=== PATIENT | female | born 1980 | race Hispanic/Latino ===

== ENCOUNTER 2019-02-28 19:22 | Emergency (ER) | payer SELFPAY ==
[~2019-02-28] VITALS: Ht 154.9 cm; Wt 102.5 kg
--- OUTSIDE RECORDS SUMMARY | 2019-02-28 19:26 | XMS REPORT | Clinical Summary ---
Author Author [facility] Organization [facility] Address Unknown Phone Unavailable Care Team Providers Care Civil Service Clerk Name Role Phone Lizabeth Reyez MD PCP Allergies No Known Allergies Medications End Date Status Medication Sig Dispensed Refills Start Date Active multivitamin/iron/folic Take by 0 acid (CENTRUM WOMEN OR) mouth. Active Condoms - Male by 49 Each 3 MiscIndications: Use of Misc.(Non-Hardeep 8 condoms for contraception g; Combo Route) route as needed. Active Nonoxynol-9 (VAGINAL Insert 3 Can 3 CONTRACEPTIVE FOAM) 12.5 vaginally. 8 % FoamIndications: Use of condoms for contraception Active loratadine (CLARITIN) 10 Take 1 tablet 30 tablet 0 mg tabletIndications: by mouth 9 Congestion of both ears daily Please use NAMIBIAN LABEL. Active fluticasone propionate Use 2 Sprays 16 g 0 (FLONASE ALLERGY RELIEF) in each 9 50 mcg/actuation nasal nostril daily sprayIndications: Please use Congestion of both ears NAMIBIAN LABEL. Active ibuprofen (MOTRIN) 600 mg Take 1 tablet 30 tablet 0 tabletIndications: by mouth 9 Headache, unspecified every 8 hours headache type as needed for Pain. Active omeprazole (PRILOSEC) 20 Take 2 180 capsule 1 mg delayed release capsules by 9 capsuleIndications: mouth daily. Gastroesophageal reflux disease with esophagitis 11/02/2018 Discontinued hydrocortisone 2.5 % Apply to 453.6 g 0 topical creamIndications: affected area 8 Rash and other 2 times nonspecific skin eruption daily. 11/04/2018 Discontinued omeprazole (PRILOSEC) 20 Take 2 180 capsule 1 05/21/201 mg delayed release capsules by 8 capsuleIndications: mouth daily. Gastroesophageal reflux disease with esophagitis 11/02/2018 Discontinued nystatin (NYSTOP) 100,000 Apply to 56.7 g 1 unit/gram topical affected area 8 powderIndications: Tinea 3 times pedis of both feet daily. Active Problems Problem Noted Date Acute deep vein thrombosis (DVT) of distal vein of left lower extremity 03/14/2018 ASCUS with positive high risk HPV cervical 03/14/2018 Overview: Referred to dysplasia clinic Varicose veins of both lower extremities 06/30/2017 History of ectopic - 6 wk gestation tubal diag 4 days 12/26/2014 back Pelvic pain 12/26/2014 Hyperlipidemia 12/05/2012 Obesity- wt gain since apr 2014 - 12/05/2012 Varicose veins 12/05/2012 Breast mass, left 11/19/2010 Encounters Care Team Description Date Type Specialty Conor Kam MD Lower abdominal pain (Primary Dx); Dysuria 01/10/2019 Emergency Emergency Medicine 01/10/2019 Travel Lizabeth Reyez MD Preventative health care; BMI 40.0-44.9, adult 11/09/2018 Lab Appointment Lab 11/09/2018 Travel Lizabeth Reyez MD BMI 40.0-44.9, adult (Primary Dx); Preventative health care; Gastroesophageal reflux disease with esophagitis 11/04/2018 Office Visit Family Practice Lizabeth Reyez MD BMI 40.0-44.9, adult 11/04/2018 Orders Only Family Practice Shan Chun Interpretation 11/04/2018 Telephone Wang Gutierrez Interpretation 11/04/2018 Telephone Malathi Hernandez NP Headache, unspecified headache type (Primary Dx); Congestion of both ears; Viral illness 11/02/2018 Same Day Family Practice 11/02/2018 Travel Horace Jacob ResidentMD Jon Graves MD Abnormal uterine bleeding (AUB) (Primary Dx) 04/27/2018 Office Visit Gynecology Emma Langford ResidentMD Other Follow-up 04/27/2018 Telephone Gynecology Yamilka Danielson Interpretation 04/27/2018 Telephone Sreedhar Grande MD ASCUS with positive high risk HPV cervical (Primary Dx) 03/29/2018 Office Visit Gynecology Niraj Presley Interpretation 03/29/2018 Telephone Kaila Shah NP Cox, Haley, LVN ASCUS with positive high risk HPV cervical (Primary Dx) 03/23/2018 Nurse Only Family Practice Farida Heredia LVN Results (ASCUS HPV+) 03/22/2018 Telephone Family Practice Enedelia Hall RN Abnormal Pap (ASCUS; HPV Positive) 03/22/2018 Telephone [facility] Practice Kaila Shah NP ASCUS with positive high risk HPV cervical (Primary Dx) 03/21/2018 Orders Only Family Practice Kaila Shah NP 03/21/2018 Orders Only Family Practice Kaila Shah NP Well woman exam with routine gynecological exam (Primary Dx); examination or test, unconfirmed; Screen for STD (sexually transmitted disease); Acute deep vein thrombosis (DVT) of distal vein of left lower extremity; Breast screening; BMI 36.0-36.9,adult; Class 2 obesity; Use of condoms for contraception 03/14/2018 Office Visit Family Practice after 02/27/2018 Immunizations Name Administration Dates Next Due Influenza Vaccine 10/13/2016, 09/17/2015 (Deferred: Contraindication - pt positive for strep in clinic today), 05/29/2013, 06/20/2010 Influenza Vaccine, 06/03/2017 Seasonal, Injectable Tdap (Tetanus Toxoid, 01/08/2014 Reduced Diphtheria Toxoid And Acellular Pertussis, Absorbed) Tdap Tetanus, diphtheria, 09/08/2010 acellular pertussis Vaccine Family History Medical History Relation Name Comments Arthritis Maternal NO CAD, CANCER Grandmother Relation Name Status Comments Brother Alive Brother Alive Daughter Alive Father Alive Maternal Grandfather Alive Maternal Grandmother Alive Mother Alive Paternal Grandfather Alive Paternal Grandmother Sister Alive Social History Date Tobacco Use Types Packs/Day Years Used Never Smoker Smokeless Tobacco: Never Used Tobacco Cessation: Counseling Given: No Drinks/Week oz/Week Comments Alcohol Use sometimes beer Yes Social Isolation Answer Date Recorded In a typical week, how many times do you talk on Once a week 11/04/2018 the phone with family, friends, or neighbors? How often do you get together with friends or Once a week 11/04/2018 relatives? How often do you attend gnosticist or pentecostal More than 4 times per year 11/04/2018 services? Do you belong to any clubs or organizations such No 11/04/2018 as gnosticist groups, unions, fraternal or athletic groups, or school groups? How often do you attend meetings of the clubs or Never 11/04/2018 organizations you belong to? Are you now , , , , 11/04/2018 never or living with a partner? Physical Activity Answer Date Recorded On average, how many days per week do you engage 3 days 11/04/2018 in moderate to strenuous exercise (like walking fast, running, jogging, dancing, swimming, biking, or other activities that cause a light or heavy sweat)? On average, how many minutes do you engage in 60 min 11/04/2018 exercise at this level? Stress Answer Date Recorded Do you feel stress - tense, restless, nervous, or Not at all 11/04/2018 anxious, or unable to sleep at night because your mind is troubled all the time - these days? Education Answer Date Recorded What is the highest level of school you have 12th grade 11/04/2018 completed or the highest degree you have received? Financial Resource Strain Answer Date Recorded How hard is it for you to pay for the very basics Not hard at all 11/04/2018 like food, housing, medical care, and heating? Intimate Partner Violence Answer Date Recorded Within the last year, have you been afraid of your No 11/04/2018 partner or ex-partner? Within the last year, have you been humiliated or No 11/04/2018 emotionally abused in other ways by your partner or ex-partner? Within the last year, have you been kicked, hit, No 11/04/2018 slapped, or otherwise physically hurt by your partner or ex-partner? Within the last year, have you been raped or No 11/04/2018 forced to have any kind of sexual activity by your partner or ex-partner? Food Insecurity Answer Date Recorded Within the past 12 months, you worried that your Never true 11/04/2018 food would run out before you got money to buy more. Within the past 12 months, the food you bought Never true 11/04/2018 just didn't last and you didn't have money to get more. Transportation Needs Answer Date Recorded In the past 12 months, has lack of transportation No 11/04/2018 kept you from medical appointments or from getting medications? In the past 12 months, has lack of transportation No 11/04/2018 kept you from meetings, work, or getting things needed for daily living? Sex Assigned at Date Recorded Not on file Industry Job Start Date Occupation Not on file Not on file Not on file Travel End Travel History Travel Start No recent travel history available. Last Filed Vital Signs Reading Time Taken Comments Vital Sign 104/74 01/10/2019 1:39 PM CDT Blood Pressure 65 01/10/2019 1:39 PM CDT Pulse 36.8 C (98.3 F) 01/10/2019 1:39 PM CDT Temperature 18 01/10/2019 1:39 PM CDT Respiratory Rate 99% 01/10/2019 1:39 PM CDT Oxygen Saturation - - Inhaled Oxygen Concentration 101.4 kg (223 lb 9.6 oz) 01/10/2019 9:13 AM CDT Weight 157.5 cm (5' 2") 11/04/2018 3:20 PM CDT Height 40.9 11/04/2018 3:20 PM CDT Body Mass Index Plan of Treatment Care Team Description Date Type Specialty Lizabeth Reyez MD [address] [place] [address] [phone] Waitlist 03/13/2019 Office Visit Family Practice Health Maintenance Due Date Last Done Comments Cervical Cancer Scrn (3 10/13/2018 10/14/2015 (Previously completed - Yrs) External), 02/15/2012 IMM Influenza Seasonal 05/09/2019 06/03/2017, 02/15/2012 (Declined) May to October (>/=19 yrs) Procedures Comments Procedure Name Priority Date/Time Associated Diagnosis POCT URINE DIPSTICK - STAT 01/10/2019 12:26 PM CDT URINALYSIS STAT 01/10/2019 12:21 PM CDT URINALYSIS STAT 01/10/2019 12:21 PM CDT GLUCOSE POC Routine 01/10/2019 9:16 AM CDT HIV-1/HIV-2 ROUTINE Routine 11/09/2018 Preventative health care SCREENING 10:04 AM CDT LIPID PROFILE Routine 11/09/2018 Preventative health care 10:04 AM CDT FREE T4 Routine 11/09/2018 BMI 40.0-44.9, adult 10:04 AM CDT LIVER PROFILE Routine 11/09/2018 Preventative health care 10:04 AM CDT THYROID STIMULATING Routine 11/09/2018 BMI 40.0-44.9, adult HORMONE (TSH) 10:04 AM CDT CBC/DIFF Routine 11/09/2018 Preventative health care 10:04 AM CDT BASIC METABOLIC PANEL Routine 11/09/2018 Preventative health care 10:04 AM CDT HEMOGLOBIN A1C Routine 11/09/2018 Preventative health care 10:04 AM CDT [facility] SUR[facility] Routine 03/29/2018 2:10 PM CDT RPR, RFX QN RPR/CONFIRM Routine 03/14/2018 Screen for STD (sexually TP 9:38 AM CDT transmitted disease) HPV,HIGH-RISK Routine 03/14/2018 9:33 AM CDT PAP IG, RFX HPV ASCU Routine 03/14/2018 Well woman exam with 9:33 AM CDT routine gynecological exam CHLAMYDIA/GC Routine 03/14/2018 Screen for STD (sexually AMPLIFICATION 9:31 AM CDT transmitted disease) POC URINE Routine 03/14/2018 examination or -AFFILIATE 8:46 AM CDT test, MANUALLY ENTERED unconfirmed POC HIV RAPID Routine 03/14/2018 Screen for STD (sexually 1/2-AFFILIATE MANUALLY 8:46 AM CDT transmitted disease) ENTERED after 02/27/2018 Results * POCT URINE DIPSTICK - (01/10/2019 12:26 PM CDT) pass Control negative * URINALYSIS (01/10/2019 12:21 PM CDT) [facility] Color Yellow Colorless, Straw, [facility] Yellow Clarity Clear Clear [facility] Spec [place], 1.014 1.001 - 1.035 [facility] Ur pH, Ur 7.0 5.0 - 8.0 [facility] Protein, Ur Negative Negative mg/dL [facility] Glucose, Ur Negative Negative mg/dL [facility] Ketone, Ur Negative Negative mg/dL [facility] Bilirubin, Ur Negative Negative mg/dL [facility] Nitrite, Ur Negative Negative [facility] Leukocyte Negative Negative mg/dL [facility] Blood, Ur Negative Negative mg/dL [facility] Urobilinogen, <1.0 <1.0 EU/dL [facility] Ur Specimen Urine Performing Organization Address [facility] Phone Number [facility] [address] [place] [id number] * GLUCOSE POC (01/10/2019 9:16 AM CDT) [facility] Glucose POC 86 74 - 106 mg/dL [facility] Specimen Blood Performing Organization Address [facility] Phone Number [facility] [address] [place] [address] * HIV-1/HIV-2 ROUTINE SCREENING (11/09/2018 10:04 AM CDT) [facility] HIV-1/HIV-2 Negative NEG BT OUTPATIENT DRAW 2 Specimen Performing Organization Address [facility] Phone Number [facility] BT OUTPATIENT DRAW 2 * HEMOGLOBIN A1C (11/09/2018 10:04 AM CDT) [facility] Hemoglobin A1c 5.6 4.3 - 6.1 % DIAGNOSTIC IMMUNOLOGY Est Average 114.0 mg/dL BT DIAGNOSTIC Gluc IMMUNOLOGY Specimen Blood Performing Organization Address [facility] Phone Number [facility] BT DIAGNOSTIC IMMUNOLOGY * TSH (11/09/2018 10:04 AM CDT) [facility] TSH 2.49 0.57 - 3.74 uIU/mL BT MAIN-STATION 1 Specimen Blood Performing Organization Address [facility] Phone Number [facility] BT MAIN-STATION 1 * FREE T4 (11/09/2018 10:04 AM CDT) [facility] Free T4 0.75 0.61 - 1.18 ng/dl [facility] MAIN-STATION Comment: 1 females: 1st Trimester-0.52-1.10 ng/dL 2nd Trimester=0.45-0.99 ng/dL 3rd Trimester=0.48-0.95 ng/dL Specimen Blood Performing Organization Address [facility] Phone Number [facility] BT MAIN-STATION 1 * LIVER PROFILE (11/09/2018 10:04 AM CDT) Protein, Total, 6.3 6.0 - 8.3 g/dL BT MAIN-STATION Serum 1 Albumin 3.8 3.7 - 5.3 g/dL BT MAIN-STATION 1 Bilirubin, 0.5 0.2 - 1.2 mg/dL BT MA[facility]ATION Total 1 Alkaline 89 34 - 104 U/L BT MAIN-STATION Phosphatase, S 1 AST (SGOT) 12 (L) 13 - 39 U/L BT MAIN-STATION 1 ALT 12 7 - 52 U/L BT MAIN-STATION 1 D Bilirubin 0.1 0.0 - 0.2 mg/dL BT MAIN-STATION 1 Specimen Blood Performing Organization Address [facility] Phone Number [facility] BT MAIN-STATION 1 * LIPID PROFILE (11/09/2018 10:04 AM CDT) Cholesterol 194 mg/dL BT MAIN-STATION Comment: 1 REFERENCE RANGE: Desirable: <200 mg/dL Borderline: 200-240 mg/dL High Risk: >240 mg/dL Triglyceride 124 <150 mg/dL BT MAIN-STATION Comment: 1 REFERENCE RANGE: Normal: <150 mg/dL Borderline High: 150-199 mg/dL High: 200-499 mg/dL Very High: >hu=503 mg/dL HDL 46 mg/dL BT MAIN-STATION Comment: 1 Increased CHD risk: <40 mg/dL Decreased CHD risk: >60 mg/dL LDL 123 mg/dL BT MAIN-STATION Comment: 1 REFERENCE RANGE: Optimal: <100 mg/dL Near Optimal: 100-129 mg/dL Borderline High: 130-159 mg/dL High: 160-189 mg/dL Very High: >bx=434 mg/dL Specimen Blood Performing Organization Address [facility] Phone Number [facility] BT MAIN-STATION 1 * CBC/DIFF (11/09/2018 10:04 AM CDT) WBC 5.8 4.5 - 11.0 K/uL BT MAIN-STATION 2 RBC 4.45 4.20 - 5.40 M/uL BT MAIN-STATION 2 Hemoglobin 13.5 12.0 - 16.0 g/dL BT MAIN-STATION 2 Hematocrit 42.6 37.0 - 47.0 % BT MAIN-STATION 2 MCV 96 (H) 82 - 92 fL BT MAIN-STATION 2 MCH 30.3 27.0 - 32.0 pg BT MAIN-STATION 2 MCHC 31.7 (L) 32.0 - 36.0 g/dL BT MAIN-STATION 2 RDW 45.4 36.4 - 46.3 fL BT MAIN-STATION 2 Platelets 241 150 - 400 K/uL BT MAIN-STATION 2 Mean Platelet 10.7 9.4 - 12.4 fL BT MAIN-STATION Volume 2 Percent NRBC 0.0 BT MAIN-STATION 2 Absolute NRBC 0.00 BT MAIN-STATION 2 Neutrophils 61.5 34.0 - 70.0 % BT MAIN-STATION 2 Lymphs 30.6 20.0 - 50.0 % BT MAIN-STATION 2 Monocytes 6.0 5.0 - 12.0 % BT MAIN-STATION 2 Eos 1.5 0.7 - 5.0 % BT MAIN-STATION 2 Basos 0.2 0.1 - 1.2 % BT MAIN-STATION 2 Immature 0.2 0.0 - 0.5 BT MAIN-STATION Granulocytes 2 Neutrophils 3.57 1.56 - 6.13 K/uL BT MAIN-STATION (Absolute) 2 Lymphs 1.78 1.18 - 3.74 K/uL BT MAIN-STATION (Absolute) 2 Monocytes(Absol 0.35 0.24 - 0.36 K/uL BT MAIN-STATION pechanga) 2 Eos (Absolute) 0.09 0.04 - 0.36 K/uL BT MAIN-STATION 2 Baso (Absolute) 0.01 0.01 - 0.08 K/uL BT MAIN-STATION 2 Immature Grans 0.01 0.00 - 0.03 K/uL BT MAIN-STATION (Abs) 2 Specimen Blood Performing Organization Address City/State/Zipcode Phone Number [facility] BT MAIN-STATION 2 * BASIC METABOLIC PANEL (11/09/2018 10:04 AM CDT) CO2 26 21 - 31 mmol/L BT MAIN-STATION 1 Chloride 107 98 - 107 mmol/L BT MAIN-STATION 1 Potassium 4.3 3.5 - 5.1 mmol/L BT MAIN-STATION 1 Sodium 142 136 - 145 mmol/L BT MAIN-STATION 1 Glucose 85 70 - 110 mg/dL BT MAIN-STATION 1 BUN 8 7 - 25 mg/dL BT MAIN-STATION 1 Creatinine 0.40 (L) 0.6 - 1.2 mg/dL BT MAIN-STATION 1 Anion Gap 9 BT MAIN-STATION 1 Calcium 8.6 8.6 - 10.3 mg/dL BT MAIN-STATION 1 GFR, Estimated >60 mL/min/1.73 m2 BT MAIN-STATION 1 eGFR If Africn >60 mL/min/1.73 m2 BT MAIN-STATION Am 1 Specimen Blood Performing Organization Address City/State/Zipcode Phone Number [facility] MAIN-STATION 1 * [facility] SURGICAL PATHOLOGY (03/29/2018 2:10 PM CDT) HX FINAL UTERUS, ENDOCERVIX, CURETTAGE: COPATH DIAGNOSIS - KOILOCYTOSIS - BENIGN ENDOCERVICAL CELLS Taty [id number] Staff Pathologist Specimen Narrative Performed At [facility] Date of 1980 Hospital Number [id number] Location [facility] () SURGICAL PATHOLOGY Collected:03/29/2018 14:10 Received: 12:49 PATHOLOGIC DIAGNOSIS UTERUS, ENDOCERVIX, CURETTAGE: - KOILOCYTOSIS - BENIGN ENDOCERVICAL CELLS Taty [id number] Staff Pathologist Pertinent Clinical Information 37-year-old with ASCUS Pap HPV HR+ Clinical Impression:HPV changes Gross Description Specimen Material:Endocervix curettage The case is received in one part labeled with the patient's name "NADJA HILLIARD", medical record number and given accession number [id number], and it is accompanied by a requisition form labeled with the same name and accession number. Received in formalin labeled "ECC" is a 1 x 1 x 0.1 cm aggregate of mucoid material.The specimen is submitted in toto following filtration in cassette A. [id number] Appliance Mechanic Microscopic Description No high-grade dysplasia or carcinoma is identified. I have personally reviewed the relevant preparations for the specimen(s), reviewedand agreed with the resident/fellow's interpretation. Electronically Signed Out Taty Lux MD, [id number] Staff Pathologist Performing Organization Address City/[facility] Phone Number MOHSEN CONNOLLY [place], [place] * RPR, RFX QN RPR/CONFIRM TP (03/14/2018 9:38 AM CDT) RPR Non Reactive Non Reactive [facility] 01 Specimen Narrative Performed At Performed at:01 - [facility] [place] [facility] [address] [place], [id number] Golf Professional: Nikolas Chance MD, Phone:[phone] Performing Organization Address [facility] Phone Number [facility] [address] [place], [place] [address] 145 [facility] 01 * HPV,HIGH-RISK (03/14/2018 9:33 AM CDT) HPV High Risk Positive (A) Negative [facility] 03 Comment: This high-risk HPV test detects thirteen high-risk types (16/18/31/33/35/39/45/51/52/56 /58/59/68) without differentiation. Specimen Narrative Performed At Performed at:03 - [facility] [place] [facility] [address] [place], [id number] Golf Professional: Ami Bill MD, Phone:[phone] Performing Organization Address [facility] Phone Number [facility] [address] [place] [address] 145 [facility] 03 * PAP IG, RFX HPV ASCU (03/14/2018 9:33 AM CDT) Diagnosis Comment (A) [facility] 01 Comment: EPITHELIAL CELL ABNORMALITY. ATYPICAL SQUAMOUS CELLS OF UNDETERMINED SIGNIFICANCE. Specimen Comment [facility] 01 Adequacy: Comment: Satisfactory for evaluation.Endocervical and/or squamous metaplastic cells (endocervical component) are present. CLINICIAN CommentComment: [id number] [facility] 02 PROVIDED ICD10: Performed by: CommentComment: Tiffanie Dietrich [facility] 02 Michael, Supervisory Twitchell Operator (ASCP) Electronic Sig CommentComment: Kimberlycarlie Mars [facility] 01 by: MD Nomi, Pathologist . . [facility] 01 PATHOLOGIST CommentComment: [id number] [facility] 01 PROVIDED ICD10: Note: Comment [facility] 02 Comment: The Pap smear is a screening test designed to aid in the detection of premalignant and malignant conditions of the uterine cervix.It is not a diagnostic procedure and should not be used as the sole means of detecting cervical cancer.Both false-positive and false-negative reports do occur. TEST Comment [facility] 02 METHODOLOGY: Comment: This liquid based ThinPrep(R) pap test was screened with the use of an image guided system. . CommentComment: See below for [facility] 01 HPV testing results. Specimen Cervical Cells Narrative Performed At Performed at: [facility] [address] [place], [id number] Golf Professional: Nikolas Chance MD, Phone:[phone] Performed at: [facility] [address] [place], [place] [id number] Golf Professional: Ami Bill MD, Phone:[phone] Specimen Comment: Source.............Cervix Specimen Comment: LMP / Prev Treat...[id number];None Specimen Comment: Dates / Results....LAST PAP NORMAL ON 03/11/ Specimen Comment: Other..............Other Specimen Comment: No. of containers..01 ThinPrep Vial Performing Organization Address City/State/Zipcode Phone Number [facility] [address] [place] [address] 145 [facility] 01 [facility] 02 * CHLAMYDIA/GC AMPLIFICATION (03/14/2018 9:31 AM CDT) Chlamydia Negative Negative [facility] 01 trachomatis, RACHEL Neisseria Negative Negative [facility] 01 gonorrhoeae, RACHEL Specimen Other (Specify in Comments) - Vaginal Swab Narrative Performed At [facility]formed at:[facility] - [facility] [address] [place], [id number] Golf Professional: Ami Bill MD, Phone:[phone] Performing Organization Address City/State/Zipcode Phone Number [facility] [address] [facility] [place] [place] [address] 145 [facility] 01 * POC HIV RAPID 1/2-AFFILIATE MANUALLY ENTERED (03/14/2018 8:46 AM CDT) RAPID HIV 1/2 Negative HCP POC LAB POC RAPID HIV 1/2 Pass [facility] POC LAB Control Specimen Blood Performing Organization Address City/State/Zipcode Phone Number [facility] POC LAB * POC URINE -AFFILIATE MANUALLY ENTERED (03/14/2018 8:46 AM CDT) POC Neg Neg - Neg [facility] POC LAB Pass Pass - Pass [facility] POC LAB Control Specimen Urine Performing Organization Address City/State/Zipcode Phone Number [facility] POC LAB after 02/27/2018 Insurance Type Payer Benefit Subscriber ID Effective Phone Address Plan / Dates Group [place] [employer] [place] 2018 [address] [employer] [employer] - [id number] PLANNING [address] [place], [place] [address] [employer] xxxxxx 2018- [phone] [address] [address] [address] [place] [address] (Work)
--- OUTSIDE RECORDS SUMMARY | 2019-02-28 19:26 | XMS REPORT ---
Author [facility] Address Unknown Phone Unavailable Care Team Providers [employer] Name Role Phone Unavailable Unavailable Problems This patient has no known problems. Allergies, Adverse Reactions, Alerts This patient has no known allergies or adverse reactions. Medications This patient has no known medications. Encounters Start Date/Time End Date/Time Encounter Type Admission Type Attending [facility] Facility Care Department Encounter ID 2019-03-13 00:00:00 2019-03-13 00:00:00 Outpatient [facility] [id number] 2019-01-18 00:00:00 2019-01-18 00:00:00 Outpatient [facility] [id number] 2019-01-10 12:09:25 2019-01-10 12:09:25 Emergency [facility] [id number] 2018-11-09 10:06:25 2018-11-09 10:06:25 Outpatient [facility] [id number] 2018-11-04 15:48:10 2018-11-04 15:48:10 Outpatient [facility] [id number] 2018-09-03 00:00:00 2018-09-03 00:00:00 Outpatient [facility] [id number] 2018-05-19 00:00:00 2018-05-19 00:00:00 Outpatient [facility] [id number] 2018-04-27 08:16:48 2018-04-27 08:16:48 Outpatient [facility] [id number] 2018-04-18 00:00:00 2018-04-18 00:00:00 Outpatient [facility] [id number] 2018-03-29 13:06:33 2018-03-29 13:06:33 Outpatient [facility] [id number] 2018-03-23 15:27:08 2018-03-23 15:27:08 Outpatient [facility] [id number] 2018-03-22 00:00:00 2018-03-22 00:00:00 Outpatient [facility] [id number] 2018-03-22 00:00:00 2018-03-22 00:00:00 Outpatient [facility] [id number] 2018-03-14 08:34:17 2018-03-14 08:34:17 Outpatient [facility] [id number] 2018-01-31 07:54:35 2018-01-31 07:54:35 Outpatient [facility] [id number] 2018-01-14 06:55:11 2018-01-14 06:55:11 Outpatient [facility] [id number] 2017-12-27 15:51:08 2017-12-27 15:51:08 Outpatient [facility] [id number] 2017-10-21 00:00:00 2017-10-21 00:00:00 Outpatient [facility] [id number] 2017-10-20 18:03:14 2017-10-20 18:03:14 Outpatient [facility] [id number] 2017-09-16 07:41:50 2017-09-16 07:41:50 Outpatient [facility] [id number] 2017-09-14 14:48:04 2017-09-14 14:48:04 Outpatient [facility] [id number] 2017-06-30 09:19:20 2017-06-30 09:19:20 Outpatient [facility] [id number] 2017-06-21 00:00:00 2017-06-21 00:00:00 Outpatient [facility] [id number] 2017-06-03 10:41:27 2017-06-03 10:41:27 Outpatient [facility] [id number] 2017-05-18 07:20:55 2017-05-18 07:20:55 Outpatient [facility] [id number] 2017-05-17 00:00:00 2017-05-17 00:00:00 Outpatient [facility] [id number] 2017-05-11 16:40:15 2017-05-11 16:40:15 Outpatient [facility] [id number] 2017-05-11 13:53:44 2017-05-11 13:53:44 Outpatient [facility] [id number] 2017-05-10 13:11:26 2017-05-10 13:11:26 Outpatient [facility] [id number] 2017-04-08 00:00:00 2017-04-08 00:00:00 Outpatient [facility] [id number] 2017-03-10 12:51:23 2017-03-10 12:51:23 Outpatient [facility] [id number] 2017-02-25 08:52:05 2017-02-25 08:52:05 Outpatient [facility] [id number] 2017-02-25 07:51:34 2017-02-25 07:51:34 Outpatient [facility] [id number] 2017-02-15 16:45:00 2017-02-15 16:45:00 Emergency [facility] [id number] 2017-02-15 00:00:00 2017-02-15 00:00:00 Outpatient [facility] [id number] 2017-02-13 03:21:42 2017-02-13 03:21:42 Emergency [facility] [id number] 2017-02-13 00:07:05 2017-02-13 00:07:05 Emergency [facility] [id number]
[2019-02-28 20:19] LABS: BILIRUBIN,URINE NEGATIVE (NEGATIVE); CLARITY,URINE SL CLOUDY (CLEAR); COLOR,URINE YELLOW (YELLOW); KETONES,URINE NEGATIVE (NEGATIVE); LEUKOCYTE ESTERASE ,URINE NEGATIVE (NEGATIVE); NITRITE,URINE NEGATIVE (NEGATIVE); PROTEIN,URINE DIPSTICK NEGATIVE (NEGATIVE); URINE UROBILINOGEN 0.2 mg/dL (0.2 - 1)
[2019-02-28 20:31] LABS: BACTERIA,URINE FEW /HPF; EPITHELIAL CELLS,URINE FEW /LPF
[2019-02-28 20:32] LABS: CALCIUM OXALATE CRYSTALS,UR RARE (FEW)
[2019-02-28] MEDS ORDERED: KETOROLAC TROMETHAMINE 60 MG/2 ML VIAL IM ONE (22:00)
[2019-02-28] MEDS ORDERED: SODIUM CHLORIDE 0.9% 1000ML 1,000 ML IV STA (22:23)
[2019-02-28 22:36] LABS: BASOPHILS % 0.2 % (0.0-1.0); EOSINOPHILS % 0.3 % (0.0-6.0); HEMOGLOBIN 13.4 g/dL (12.0-16.0); LYMPHOCYTES # (AUTO) 1.3 (1.0-3.2); LYMPHOCYTES % 11.5 % (18.0-39.1); MEAN CORPUSCULAR HEMOGLOBIN 30.8 pg (28-32); MEAN CORPUSCULAR HGB CONC 34.4 g/dL (31-35); MEAN CORPUSCULAR VOLUME 89.7 fL (81-99); MONOCYTES # (AUTO) 0.5 (0.2-0.8); MONOCYTES % 4.5 % (4.4-11.3); NEUTROPHILS # (AUTO) 9.7 (2.1-6.9); NEUTROPHILS % 83.2 % (38.7-80.0); PLATELET COUNT 233 x10e3/uL (140-360); RED BLOOD COUNT 4.35 x10e6/uL (3.6-5.1); RED CELL DISTRIBUTION WIDTH 12.4 % (11.7-14.4)
[2019-02-28 22:51] LABS: ALANINE AMINOTRANSFERASE 15 IU/L (0-55); ALBUMIN 3.7 g/dL (3.5-5.0); ALBUMIN/GLOBULIN RATIO 1.2 (0.8-2.0); ALKALINE PHOSPHATASE 105 IU/L (40-150); BLOOD UREA NITROGEN 12 mg/dL (7-26); CALCIUM 9.6 mg/dL (8.4-10.2); CARBON DIOXIDE 22 mmol/L (22-29); GLUCOSE 110 mg/dL (74-118)
[2019-02-28 23:21] LABS: ANION GAP 13.3 mmol/L (8-16); BUN/CREATININE RATIO 19 (6-25); CHLORIDE 105 mmol/L (98-107); CREATININE, SERUM 0.64 mg/dL (0.57-1.11); EST GLOMERULAR FILTRATION RATE > 60 ML/MIN (60-); POTASSIUM 4.3 mmol/L (3.5-5.1); SODIUM 138 mmol/L (136-145)
--- NOTE | 2019-02-28 23:50 | NUR ---
pt reports she feels much better after meds and IVF's. pain 09/18. awake alert skin w/d resp nonlab. nad noted.
[2019-03-01] MEDS ORDERED: TRAMADOL HCL 50 MG TAB PO STA (01:48)
[2019-03-01] MEDS ORDERED: ULTRAM50 MG PO (01:51)
--- NOTE | 2019-03-01 02:09 | NUR ---
pt reports pain has worsened, md aware. medicated with tramadol per orders. pain 01/16
== END 2019-03-01 02:39 | disposition home or self-care (01) ==
LOC: ER 19:22
DX: R30.0 Dysuria (principal); R31.9 Hematuria, unspecified; M54.5 Low back pain; N20.0 Calculus of kidney
CPT/HCPCS: 36415; 80053; 81001; 84702; 85025; 87086; 96372; 99283; J1885; J7030